=== PATIENT | female | born 1970 | race Caucasian/White ===

== ENCOUNTER 2021-11-01 07:42 | Inpatient (IN) ==
[2021-11-01] MEDS ORDERED: Ondansetron 4 MG/2 ML VIAL IVP ONE (08:19)
[2021-11-01] MEDS ORDERED: *HR* FentaNYL (PF) 100 MCG/2 ML VIAL IVP ONE (08:26)
[2021-11-01 08:39] LABS: Bacteria,Urine Few per hpf (None-Few); Bilirubin,Urine Negative (Negative); Blood,Urine Trace (Negative); Clarity,Urine Turbid (Clear); Color,Urine Yellow (Yellow); Glucose,Urine (UA) Normal (Normal); Hyaline Casts,Urine Few per lpf (None Seen); Ketones,Urine 10 mg/dL (Negative); Leukocyte Esterase,Urine Small (Negative); Mucus,Urine Moderate per lpf (None-Few); Nitrite,Urine Negative (Negative); PH,Urine 5.5 pH Units (5.0-8.0); Protein,Urine 50 mg/dL (Neg-Trace); Specific Gravity,Urine 1.027 (1.010-1.025); Squamous Epithelial Cell,Urine Many per hpf (None-Few); Transitional Epi Cells,Urine Few per hpf (None-Few); Urobilinogen,Urine Normal (Normal); WBC,Urine 15-30 per hpf (0-3)
[2021-11-01 08:41] LABS: Basophils % 0.2 %; Eosinophils # 0.1 K/mcL (0.0-0.6); Eosinophils % 0.4 %; Hemoglobin 15.3 g/dL (11.5-15.4); Immature Granulocytes % 0.4 % (0-4); Lymphocytes # 1.9 K/mcL (0.6-4.6); Lymphocytes % 14.5 %; Mean Corpuscular Hemoglobin 31.7 pg (28.0-33.3); Mean Corpuscular Volume 93.4 fL (83.0-100.0); Mean Platelet Volume 11.7 fL (9.4-12.4); Monocytes % 7.9 %; Neutrophils # 9.9 K/mcL (1.6-8.9); Platelet Count 331 K/mcL (140-400); Red Blood Count 4.82 M/mcL (3.82-4.97); Red Cell Distribution Width 12.2 % (11.5-14.5); Segmented Neutrophils % 76.6 %; White Blood Count 12.9 K/mcL (4.3-11.1)
[2021-11-01] MEDS ORDERED: Isovue-370 500 ML BOTTLE IVP ONE (08:44)
[2021-11-01] MEDS ORDERED: Ringers Solution, Lactated 1,000 ML IVC ONE (08:45)
[2021-11-01 09:07] LABS: Alanine Aminotransferase 12 Units/L (7-52); Albumin 4.8 g/dL (3.5-5.7); Albumin/Globulin Ratio 1.5 (1.1-2.2); Alkaline Phosphatase 98 Units/L (34-104); Aspartate Amino Transferase 14 Units/L (13-39); BUN/Creatinine Ratio 20 (6-26); Bilirubin,Direct 0.2 mg/dL (0.0-0.2); Bilirubin,Indirect 0.6 mg/dL (0.0-1.0); Bilirubin,Total 0.8 mg/dL (0.3-1.0); Blood Urea Nitrogen 14 mg/dL (6-20); Calcium 9.8 mg/dL (8.6-10.3); Carbon Dioxide 22 mEq/L (23-29); Chloride 93 mEq/L (98-107); Globulin 3.1 g/dL (2.4-3.5); Glucose 123 mg/dL (70-105); Lipase > 1800 Units/L (11-82); Osmolality,Calculated 264 (280-300); Potassium 3.8 mEq/L (3.5-5.1); Sodium 126 mEq/L (136-145); Total Protein 7.9 g/dL (6.4-8.9); eGFR For African Americans > 60 (> 60); eGFR For Non-African Americans > 60 (> 60)
[2021-11-01 09:25] LABS: Ethanol < 10 mg/dL (Less than 10)
[2021-11-01] MEDS ORDERED: Morphine Sulfate 2 MG/ML SYRINGE IVP ONE (09:50)
[2021-11-01] MEDS ORDERED: Naloxone 0.4 MG/ML INJ IVP PRN ×2 (11:35)
[2021-11-01] MEDS ORDERED: Ondansetron 4 MG/2 ML VIAL IVP PRN (11:37)
[2021-11-01] MEDS: Morphine Sulfate 2 MG/ML SYRINGE IVP PRN ×3 (13:37→22:04)
[2021-11-01] MEDS: cefTRIAXone 2,000 MG in 0.9 % Sodium Chloride 20 ML IVPB SCH (13:38)
[2021-11-01] MEDS: Pantoprazole 40 MG VIAL IVP SCH ×2 (13:38→18:21)
[2021-11-01] MEDS: Ringers Solution, Lactated 1,000 ML IVC SCH ×2 (13:38→18:22)
[2021-11-01] MEDS ORDERED: *HR* LORazepam 2 MG/ML VIAL IVP ONE (13:39)
[2021-11-01] MEDS: traZODone 50 MG TABLET PO SCH (20:19)
[2021-11-02] MEDS: Ringers Solution, Lactated 1,000 ML IVC SCH ×5 (00:15→19:37)
[2021-11-02] MEDS ORDERED: Ibuprofen 600 MG TABLET PO ONE ×2 (00:55→19:44)
[2021-11-02] MEDS: Morphine Sulfate 2 MG/ML SYRINGE IVP PRN ×6 (01:22→21:38)
[2021-11-02] MEDS: Pantoprazole 40 MG VIAL IVP SCH ×2 (04:16→18:39)
[2021-11-02 06:36] LABS: Basophils % 0.3 %; Eosinophils # 0.1 K/mcL (0.0-0.6); Eosinophils % 1.3 %; Immature Granulocytes % 0.2 % (0-4); Lymphocytes # 1.5 K/mcL (0.6-4.6); Mean Corpuscular HGB Conc 33.3 g/dL (31.6-35.5); Mean Corpuscular Hemoglobin 31.9 pg (28.0-33.3); Mean Corpuscular Volume 95.7 fL (83.0-100.0); Mean Platelet Volume 11.5 fL (9.4-12.4); Monocytes # 0.9 K/mcL (0.0-1.3); Monocytes % 14.1 %; Neutrophils # 3.6 K/mcL (1.6-8.9); Platelet Count 209 K/mcL (140-400); Red Blood Count 3.76 M/mcL (3.82-4.97); Red Cell Distribution Width 12.4 % (11.5-14.5); Segmented Neutrophils % 59.1 %
[2021-11-02 06:37] LABS: White Blood Count 6.1 K/mcL (4.3-11.1)
[2021-11-02 06:56] LABS: Amylase 264 Units/L (29-103); BUN/Creatinine Ratio 16 (6-26); Blood Urea Nitrogen 9 mg/dL (6-20); Calcium 8.2 mg/dL (8.6-10.3); Carbon Dioxide 25 mEq/L (23-29); Chloride 101 mEq/L (98-107); Glucose 88 mg/dL (70-105); Lipase 256 Units/L (11-82); Osmolality,Calculated 272 (280-300); Potassium 3.6 mEq/L (3.5-5.1); Sodium 132 mEq/L (136-145); eGFR For African Americans > 60 (> 60); eGFR For Non-African Americans > 60 (> 60)
[2021-11-02] MEDS: BuPROPion XL (24 HR) 150 MG TABLET PO SCH (08:35)
[2021-11-02] MEDS: FLUoxetine 20 MG CAPSULE PO SCH (08:35)
[2021-11-02] MEDS ORDERED: cefTRIAXone 1,000 MG in 0.9 % Sodium Chloride Mini Bag 100 ML IVPB SCH (09:00)
[2021-11-02] MEDS: cefTRIAXone 2,000 MG in 0.9 % Sodium Chloride 20 ML IVPB SCH (10:59)
[2021-11-02] MEDS: Simethicone 80 MG TAB.CHEW PO PRN (15:29)
[2021-11-02] MEDS: traZODone 50 MG TABLET PO SCH (19:38)
[2021-11-02] MEDS ORDERED: *HR* LORazepam 0.5 MG TABLET PO ONE (19:45)
[2021-11-03] MEDS: Morphine Sulfate 2 MG/ML SYRINGE IVP PRN ×6 (02:39→19:40)
[2021-11-03] MEDS: Pantoprazole 40 MG VIAL IVP SCH ×2 (04:38→16:15)
[2021-11-03] MEDS: Ringers Solution, Lactated 1,000 ML IVC SCH ×3 (04:38→19:51)
[2021-11-03 05:33] LABS: Basophils % 0.3 %; Eosinophils # 0.2 K/mcL (0.0-0.6); Eosinophils % 2.4 %; Hematocrit 34.6 % (35.3-44.9); Hemoglobin 11.9 g/dL (11.5-15.4); Immature Granulocytes % 0.3 % (0-4); Lymphocytes # 1.7 K/mcL (0.6-4.6); Lymphocytes % 25.4 %; Mean Corpuscular HGB Conc 34.4 g/dL (31.6-35.5); Mean Corpuscular Hemoglobin 32.9 pg (28.0-33.3); Mean Corpuscular Volume 95.6 fL (83.0-100.0); Mean Platelet Volume 11.8 fL (9.4-12.4); Monocytes # 0.9 K/mcL (0.0-1.3); Monocytes % 14.2 %; Neutrophils # 3.8 K/mcL (1.6-8.9); Platelet Count 242 K/mcL (140-400); Red Blood Count 3.62 M/mcL (3.82-4.97); Red Cell Distribution Width 12.3 % (11.5-14.5); Segmented Neutrophils % 57.4 %; White Blood Count 6.6 K/mcL (4.3-11.1)
[2021-11-03 05:54] LABS: BUN/Creatinine Ratio 12 (6-26); Blood Urea Nitrogen 6 mg/dL (6-20); Calcium 8.4 mg/dL (8.6-10.3); Carbon Dioxide 23 mEq/L (23-29); Chloride 102 mEq/L (98-107); Glucose 81 mg/dL (70-105); Lipase 97 Units/L (11-82); Osmolality,Calculated 275 (280-300); Potassium 3.4 mEq/L (3.5-5.1); Sodium 134 mEq/L (136-145); eGFR For African Americans > 60 (> 60); eGFR For Non-African Americans > 60 (> 60)
[2021-11-03] MEDS: FLUoxetine 20 MG CAPSULE PO SCH (08:50)
[2021-11-03] MEDS: BuPROPion XL (24 HR) 150 MG TABLET PO SCH (08:50)
[2021-11-03] MEDS: cefTRIAXone 2,000 MG in 0.9 % Sodium Chloride 20 ML IVPB SCH (08:51)
[2021-11-03] MEDS: traZODone 50 MG TABLET PO SCH (19:39)
[2021-11-03] MEDS ORDERED: Ketorolac 30 MG/ML VIAL IVP ONE (21:33)
[2021-11-04] MEDS: Morphine Sulfate 2 MG/ML SYRINGE IVP PRN ×6 (03:15→23:42)
[2021-11-04] MEDS: Pantoprazole 40 MG VIAL IVP SCH ×2 (05:11→16:29)
[2021-11-04 05:47] LABS: Basophils % 0.5 %; Eosinophils # 0.2 K/mcL (0.0-0.6); Eosinophils % 2.6 %; Hematocrit 34.7 % (35.3-44.9); Hemoglobin 11.6 g/dL (11.5-15.4); Immature Granulocytes % 0.5 % (0-4); Lymphocytes # 1.6 K/mcL (0.6-4.6); Lymphocytes % 28.3 %; Mean Corpuscular HGB Conc 33.4 g/dL (31.6-35.5); Mean Corpuscular Hemoglobin 32.4 pg (28.0-33.3); Mean Corpuscular Volume 96.9 fL (83.0-100.0); Mean Platelet Volume 12.3 fL (9.4-12.4); Monocytes # 0.7 K/mcL (0.0-1.3); Monocytes % 12.6 %; Neutrophils # 3.2 K/mcL (1.6-8.9); Platelet Count 233 K/mcL (140-400); Red Blood Count 3.58 M/mcL (3.82-4.97); Red Cell Distribution Width 12.2 % (11.5-14.5); Segmented Neutrophils % 55.5 %; White Blood Count 5.7 K/mcL (4.3-11.1)
[2021-11-04 05:56] LABS: BUN/Creatinine Ratio 12 (6-26); Blood Urea Nitrogen 6 mg/dL (6-20); Calcium 8.2 mg/dL (8.6-10.3); Carbon Dioxide 24 mEq/L (23-29); Chloride 102 mEq/L (98-107); Glucose 84 mg/dL (70-105); Lipase 72 Units/L (11-82); Osmolality,Calculated 277 (280-300); Potassium 3.8 mEq/L (3.5-5.1); Sodium 135 mEq/L (136-145); eGFR For African Americans > 60 (> 60); eGFR For Non-African Americans > 60 (> 60)
[2021-11-04] MEDS: BuPROPion XL (24 HR) 150 MG TABLET PO SCH (07:44)
[2021-11-04] MEDS: FLUoxetine 20 MG CAPSULE PO SCH (07:44)
[2021-11-04] MEDS ORDERED: GADOBUTROL 30 MMOL/30 ML VIAL IVP ONE (10:58)
[2021-11-04] MEDS ORDERED: Acetaminophen 325 MG TABLET PO PRN (13:01)
[2021-11-04] MEDS ORDERED: Ibuprofen 400 MG TABLET PO PRN (13:21)
[2021-11-04] MEDS ORDERED: *HR* Propofol 200 MG/20 ML VIAL IVP ONE ×2 (14:25→15:08)
[2021-11-04] MEDS ORDERED: Lidocaine -MPF 2% 5 ML VIAL ONE (14:26)
[2021-11-04] MEDS: traZODone 50 MG TABLET PO SCH (19:58)
[2021-11-04] MEDS: Ringers Solution, Lactated 1,000 ML IVC SCH (20:01)
[2021-11-04] MEDS ORDERED: Chloraseptic Spray 177 ML BOTTLE MM PRN (20:03)
[2021-11-05] MEDS ORDERED: *HR* Dextrose 50 % in Water (Syg) 50 ML SYRINGE IVP PRN (00:33)
[2021-11-05] MEDS ORDERED: Dextrose 4 GM Chewable Tablets PO PRN ×2 (00:33)
[2021-11-05] MEDS ORDERED: D5% in Water 1,000 ML IVC PRN (00:33)
[2021-11-05] MEDS: Pantoprazole 40 MG VIAL IVP SCH ×2 (04:27→18:14)
[2021-11-05] MEDS: Morphine Sulfate 2 MG/ML SYRINGE IVP PRN ×4 (04:28→22:37)
[2021-11-05 05:07] LABS: Basophils % 0.5 %; Eosinophils # 0.3 K/mcL (0.0-0.6); Eosinophils % 4.3 %; Hematocrit 36.4 % (35.3-44.9); Hemoglobin 12.3 g/dL (11.5-15.4); Immature Granulocytes % 0.3 % (0-4); Lymphocytes # 1.8 K/mcL (0.6-4.6); Lymphocytes % 30.7 %; Mean Corpuscular HGB Conc 33.8 g/dL (31.6-35.5); Mean Corpuscular Hemoglobin 32.2 pg (28.0-33.3); Mean Corpuscular Volume 95.3 fL (83.0-100.0); Monocytes # 0.6 K/mcL (0.0-1.3); Monocytes % 9.9 %; Neutrophils # 3.1 K/mcL (1.6-8.9); Platelet Count 258 K/mcL (140-400); Red Blood Count 3.82 M/mcL (3.82-4.97); Red Cell Distribution Width 12.1 % (11.5-14.5); Segmented Neutrophils % 54.3 %; White Blood Count 5.8 K/mcL (4.3-11.1)
[2021-11-05 05:25] LABS: BUN/Creatinine Ratio 9 (6-26); Blood Urea Nitrogen 5 mg/dL (6-20); Calcium 8.7 mg/dL (8.6-10.3); Carbon Dioxide 25 mEq/L (23-29); Chloride 101 mEq/L (98-107); Glucose 75 mg/dL (70-105); Osmolality,Calculated 276 (280-300); Potassium 3.7 mEq/L (3.5-5.1); Sodium 135 mEq/L (136-145); eGFR For African Americans > 60 (> 60); eGFR For Non-African Americans > 60 (> 60)
[2021-11-05 05:26] LABS: Magnesium 1.5 mg/dL (1.6-2.6); Phosphorous 3.7 mg/dL (2.7-4.5)
[2021-11-05] MEDS ORDERED: *HR* Dextrose 50 % in Water (Syg) 50 ML SYRINGE IVP ONE (05:57)
[2021-11-05] MEDS: BuPROPion XL (24 HR) 150 MG TABLET PO SCH (08:39)
[2021-11-05] MEDS: FLUoxetine 20 MG CAPSULE PO SCH (08:39)
[2021-11-05] MEDS: Ringers Solution, Lactated 1,000 ML IVC SCH (16:23)
[2021-11-05] MEDS: traZODone 50 MG TABLET PO SCH (22:36)
[2021-11-06 02:50] LABS: Basophils % 0.7 %; Eosinophils # 0.3 K/mcL (0.0-0.6); Eosinophils % 4.7 %; Hematocrit 39.3 % (35.3-44.9); Hemoglobin 13.3 g/dL (11.5-15.4); Immature Granulocytes % 0.3 % (0-4); Lymphocytes # 2.1 K/mcL (0.6-4.6); Lymphocytes % 36.1 %; Mean Corpuscular HGB Conc 33.8 g/dL (31.6-35.5); Mean Corpuscular Hemoglobin 32.1 pg (28.0-33.3); Mean Corpuscular Volume 94.9 fL (83.0-100.0); Mean Platelet Volume 11.8 fL (9.4-12.4); Monocytes # 0.5 K/mcL (0.0-1.3); Monocytes % 8.6 %; Neutrophils # 2.9 K/mcL (1.6-8.9); Platelet Count 313 K/mcL (140-400); Red Blood Count 4.14 M/mcL (3.82-4.97); Red Cell Distribution Width 12.2 % (11.5-14.5); Segmented Neutrophils % 49.6 %; White Blood Count 5.9 K/mcL (4.3-11.1)
[2021-11-06 03:01] LABS: BUN/Creatinine Ratio 8 (6-26); Blood Urea Nitrogen 5 mg/dL (6-20); Calcium 8.8 mg/dL (8.6-10.3); Carbon Dioxide 27 mEq/L (23-29); Chloride 101 mEq/L (98-107); Glucose 121 mg/dL (70-105); Osmolality,Calculated 283 (280-300); Potassium 3.2 mEq/L (3.5-5.1); Sodium 137 mEq/L (136-145); eGFR For African Americans > 60 (> 60); eGFR For Non-African Americans > 60 (> 60)
[2021-11-06 03:04] LABS: Magnesium 1.8 mg/dL (1.6-2.6)
[2021-11-06 03:47] LABS: Platelet Estimate Normal (Normal); Reactive Lymphocytes Present (Not Present)
[2021-11-06] MEDS: Pantoprazole 40 MG VIAL IVP SCH (05:50)
[2021-11-06] MEDS: BuPROPion XL (24 HR) 150 MG TABLET PO SCH (08:09)
[2021-11-06] MEDS: FLUoxetine 20 MG CAPSULE PO SCH (08:10)
[2021-11-06] MEDS ORDERED: Potassium Chloride Elixir 20 MEQ/15 ML UDC GTUBE ONE (08:25)
[2021-11-06] MEDS ORDERED: Morphine Sulfate 2 MG/ML SYRINGE IVP PRN ×2 (11:13→13:09)
[2021-11-06] MEDS: Insulin LISPRO 300 UNITS/3 ML VIAL SUBQ SCH ×3 (12:23→21:08)
[2021-11-06] MEDS: traZODone 50 MG TABLET PO SCH (21:07)
[2021-11-06] MEDS: Simethicone 80 MG TAB.CHEW PO PRN (23:01)
[2021-11-07] MEDS: Insulin LISPRO 300 UNITS/3 ML VIAL SUBQ SCH ×4 (01:39→15:03)
[2021-11-07 02:43] LABS: Basophils % 0.4 %; Eosinophils # 0.3 K/mcL (0.0-0.6); Eosinophils % 3.2 %; Hematocrit 37.2 % (35.3-44.9); Hemoglobin 12.6 g/dL (11.5-15.4); Immature Granulocytes % 0.3 % (0-4); Lymphocytes # 1.6 K/mcL (0.6-4.6); Lymphocytes % 17.2 %; Mean Corpuscular HGB Conc 33.9 g/dL (31.6-35.5); Mean Corpuscular Hemoglobin 32.8 pg (28.0-33.3); Mean Corpuscular Volume 96.9 fL (83.0-100.0); Monocytes # 0.6 K/mcL (0.0-1.3); Monocytes % 6.7 %; Platelet Count 293 K/mcL (140-400); Red Blood Count 3.84 M/mcL (3.82-4.97); Red Cell Distribution Width 12.3 % (11.5-14.5); Segmented Neutrophils % 72.2 %
[2021-11-07 02:52] LABS: Neutrophils # 6.8 K/mcL (1.6-8.9); White Blood Count 9.4 K/mcL (4.3-11.1)
[2021-11-07 03:06] LABS: BUN/Creatinine Ratio 12 (6-26); Blood Urea Nitrogen 8 mg/dL (6-20); Carbon Dioxide 27 mEq/L (23-29); Chloride 104 mEq/L (98-107); Glucose 101 mg/dL (70-105); Magnesium 1.8 mg/dL (1.6-2.6); Osmolality,Calculated 288 (280-300); Phosphorous 3.9 mg/dL (2.7-4.5); Potassium 4.1 mEq/L (3.5-5.1); Sodium 140 mEq/L (136-145); eGFR For African Americans > 60 (> 60); eGFR For Non-African Americans > 60 (> 60)
[2021-11-07] MEDS: BuPROPion XL (24 HR) 150 MG TABLET PO SCH (07:51)
[2021-11-07] MEDS: FLUoxetine 20 MG CAPSULE PO SCH (07:51)
[2021-11-07 11:42] VITALS: BP 129/76; PULSE 51; TEMP 97.9; O2SAT 99
== END 2021-11-07 16:54 | disposition home health service (06) | DRG 439 ==
LOC: EMEROOARM 07:42 → 3ANU 07:42 → SUATTDRO 12:33 → 3ANU 13:26
PROVIDERS: ADMIT Hospitalist; ATTEND Family Medicine

== ENCOUNTER 2021-12-07 05:25 | Observation (INO) ==
[2021-12-07] MEDS ORDERED: Ondansetron 4 MG/2 ML VIAL IVP ONE (05:53)
[2021-12-07] MEDS ORDERED: Morphine Sulfate 2 MG/ML SYRINGE IVP STA (05:53)
[2021-12-07] MEDS ORDERED: 0.9 % Sodium Chloride 1,000 ML IVC ONE (05:53)
[2021-12-07] MEDS ORDERED: Isovue-370 500 ML BOTTLE IVP ONE (05:54)
[2021-12-07 06:54] LABS: Basophils # 0.1 K/mcL (0.0-0.2); Basophils % 0.5 %; Eosinophils # 0.1 K/mcL (0.0-0.6); Eosinophils % 0.9 %; Hematocrit 44.1 % (35.3-44.9); Hemoglobin 14.8 g/dL (11.5-15.4); Immature Granulocytes % 0.4 % (0-4); Lymphocytes # 2.1 K/mcL (0.6-4.6); Lymphocytes % 15.2 %; Mean Corpuscular HGB Conc 33.6 g/dL (31.6-35.5); Mean Corpuscular Hemoglobin 30.6 pg (28.0-33.3); Mean Corpuscular Volume 91.1 fL (83.0-100.0); Mean Platelet Volume 11.3 fL (9.4-12.4); Monocytes # 0.7 K/mcL (0.0-1.3); Monocytes % 4.9 %; Neutrophils # 10.7 K/mcL (1.6-8.9); Platelet Count 413 K/mcL (140-400); Red Blood Count 4.84 M/mcL (3.82-4.97); Red Cell Distribution Width 12.4 % (11.5-14.5); Segmented Neutrophils % 78.1 %; White Blood Count 13.7 K/mcL (4.3-11.1)
[2021-12-07 07:17] LABS: Alanine Aminotransferase 12 Units/L (7-52); Albumin 4.6 g/dL (3.5-5.7); Albumin/Globulin Ratio 1.5 (1.1-2.2); Alkaline Phosphatase 89 Units/L (34-104); Amylase 143 Units/L (29-103); Aspartate Amino Transferase 12 Units/L (13-39); BUN/Creatinine Ratio 11 (6-26); Bilirubin,Indirect 0.5 mg/dL (0.0-1.0); Bilirubin,Total 0.5 mg/dL (0.3-1.0); Blood Urea Nitrogen 8 mg/dL (6-20); Carbon Dioxide 24 mEq/L (23-29); Chloride 100 mEq/L (98-107); Globulin 3.1 g/dL (2.4-3.5); Glucose 135 mg/dL (70-105); Lipase 120 Units/L (11-82); Osmolality,Calculated 280 (280-300); Potassium 3.9 mEq/L (3.5-5.1); Sodium 135 mEq/L (136-145); Total Protein 7.7 g/dL (6.4-8.9); Troponin I < 0.03 ng/mL (< 0.04); eGFR For African Americans > 60 (> 60); eGFR For Non-African Americans > 60 (> 60)
[2021-12-07 07:29] LABS: Bilirubin,Urine Negative (Negative); Blood,Urine Negative (Negative); Clarity,Urine Clear (Clear); Color,Urine Light-Yellow (Yellow); Glucose,Urine (UA) Normal (Normal); Ketones,Urine Negative (Negative); Leukocyte Esterase,Urine Negative (Negative); Nitrite,Urine Negative (Negative); PH,Urine 7.5 pH Units (5.0-8.0); Protein,Urine Trace mg/dL (Neg-Trace); Urobilinogen,Urine Normal (Normal)
[2021-12-07] MEDS ORDERED: Morphine Sulfate 2 MG/ML SYRINGE IVP ONE (09:24)
[2021-12-07] MEDS ORDERED: *HR* OxyCODONE Oral Soln 5 MG/5 ML UD.LIQ GTUBE ONE (09:30)
[2021-12-07] MEDS ORDERED: Ondansetron 4 MG/2 ML VIAL IVP PRN (10:00)
[2021-12-07] MEDS ORDERED: Naloxone 0.4 MG/ML INJ IVP PRN (10:00)
[2021-12-07] MEDS ORDERED: Ondansetron ODT 4 MG TAB.RAPDIS SL PRN (11:09)
[2021-12-07] MEDS ORDERED: NON-FORMULARY MEDICATION 1 EACH EACH (Fluoxetine Hcl [Fluoxetine Hcl] 40 MG Capsule) PO SCH (11:15)
[2021-12-07] MEDS: FLUoxetine 20 MG CAPSULE PO SCH (12:10)
[2021-12-07] MEDS: BuPROPion XL (24 HR) 150 MG TABLET PO SCH (12:10)
[2021-12-07] MEDS: Amoxicillin 500 MG CAPSULE PO SCH ×3 (12:11→23:45)
[2021-12-07] MEDS: Pantoprazole 40 MG VIAL IVP SCH (12:11)
[2021-12-07] MEDS ORDERED: Metoclopramide 10 MG/2 ML VIAL IVP PRN (14:08)
[2021-12-07] MEDS: Morphine Sulfate 2 MG/ML SYRINGE IVP PRN ×2 (17:28→23:44)
[2021-12-07] MEDS: traZODone 50 MG TABLET PO SCH (20:30)
[2021-12-08 01:37] LABS: Basophils % 0.4 %; Eosinophils # 0.2 K/mcL (0.0-0.6); Eosinophils % 1.8 %; Hematocrit 38.7 % (35.3-44.9); Immature Granulocytes % 0.3 % (0-4); Lymphocytes # 2.1 K/mcL (0.6-4.6); Lymphocytes % 22.7 %; Mean Corpuscular HGB Conc 33.6 g/dL (31.6-35.5); Mean Corpuscular Hemoglobin 31.5 pg (28.0-33.3); Mean Corpuscular Volume 93.7 fL (83.0-100.0); Mean Platelet Volume 11.3 fL (9.4-12.4); Monocytes # 0.7 K/mcL (0.0-1.3); Monocytes % 8.2 %; Platelet Count 269 K/mcL (140-400); Red Blood Count 4.13 M/mcL (3.82-4.97); Red Cell Distribution Width 12.5 % (11.5-14.5); Segmented Neutrophils % 66.6 %; White Blood Count 9.1 K/mcL (4.3-11.1)
[2021-12-08 02:24] LABS: Alanine Aminotransferase 9 Units/L (7-52); Albumin 3.6 g/dL (3.5-5.7); Albumin/Globulin Ratio 1.3 (1.1-2.2); Alkaline Phosphatase 65 Units/L (34-104); Aspartate Amino Transferase 10 Units/L (13-39); BUN/Creatinine Ratio 19 (6-26); Bilirubin,Total 0.4 mg/dL (0.3-1.0); Blood Urea Nitrogen 11 mg/dL (6-20); Carbon Dioxide 24 mEq/L (23-29); Chloride 104 mEq/L (98-107); Globulin 2.8 g/dL (2.4-3.5); Glucose 112 mg/dL (70-105); Lipase 1199 Units/L (11-82); Osmolality,Calculated 282 (280-300); Potassium 3.2 mEq/L (3.5-5.1); Sodium 136 mEq/L (136-145); Total Protein 6.4 g/dL (6.4-8.9); eGFR For African Americans > 60 (> 60); eGFR For Non-African Americans > 60 (> 60)
[2021-12-08] MEDS: *HR* Enoxaparin 30 MG/0.3 ML SYRINGE SQ SCH (05:29)
[2021-12-08] MEDS: Amoxicillin 500 MG CAPSULE PO SCH ×3 (05:29→17:49)
[2021-12-08] MEDS: Morphine Sulfate 2 MG/ML SYRINGE IVP PRN ×2 (06:05→12:28)
[2021-12-08] MEDS ORDERED: Morphine Sulfate 2 MG/ML SYRINGE IVP ONE (08:52)
[2021-12-08] MEDS: BuPROPion XL (24 HR) 150 MG TABLET PO SCH (09:07)
[2021-12-08] MEDS: FLUoxetine 20 MG CAPSULE PO SCH (09:08)
[2021-12-08] MEDS: Loratadine 10 MG TABLET PO SCH (09:08)
[2021-12-08] MEDS: Pantoprazole 40 MG VIAL IVP SCH (09:08)
[2021-12-08] MEDS: Ringers Solution, Lactated 1,000 ML IVC SCH (14:33)
[2021-12-08] MEDS: traZODone 50 MG TABLET PO SCH (20:07)
[2021-12-08] MEDS ORDERED: *HR* HYDROmorphone (PF) 1 MG/ML SYRINGE IVP ONE (20:27)
[2021-12-09] MEDS: Ringers Solution, Lactated 1,000 ML IVC SCH (02:18)
[2021-12-09 03:08] LABS: Basophils % 0.5 %; Eosinophils # 0.2 K/mcL (0.0-0.6); Eosinophils % 2.2 %; Hematocrit 39.4 % (35.3-44.9); Immature Granulocytes % 0.1 % (0-4); Lymphocytes # 3.1 K/mcL (0.6-4.6); Lymphocytes % 35.1 %; Mean Corpuscular Volume 93.8 fL (83.0-100.0); Mean Platelet Volume 11.3 fL (9.4-12.4); Monocytes # 0.7 K/mcL (0.0-1.3); Neutrophils # 4.8 K/mcL (1.6-8.9); Platelet Count 254 K/mcL (140-400); Red Cell Distribution Width 12.2 % (11.5-14.5); Segmented Neutrophils % 54.1 %; White Blood Count 8.8 K/mcL (4.3-11.1)
[2021-12-09 03:31] LABS: Alanine Aminotransferase 9 Units/L (7-52); Albumin 3.8 g/dL (3.5-5.7); Albumin/Globulin Ratio 1.5 (1.1-2.2); Alkaline Phosphatase 70 Units/L (34-104); Aspartate Amino Transferase 12 Units/L (13-39); BUN/Creatinine Ratio 19 (6-26); Bilirubin,Total 0.4 mg/dL (0.3-1.0); Blood Urea Nitrogen 11 mg/dL (6-20); Calcium 9.3 mg/dL (8.6-10.3); Carbon Dioxide 28 mEq/L (23-29); Chloride 104 mEq/L (98-107); Globulin 2.6 g/dL (2.4-3.5); Glucose 92 mg/dL (70-105); Lipase 116 Units/L (11-82); Osmolality,Calculated 289 (280-300); Potassium 3.6 mEq/L (3.5-5.1); Sodium 140 mEq/L (136-145); Total Protein 6.4 g/dL (6.4-8.9); eGFR For African Americans > 60 (> 60); eGFR For Non-African Americans > 60 (> 60)
[2021-12-09] MEDS: *HR* Enoxaparin 30 MG/0.3 ML SYRINGE SQ SCH (06:08)
[2021-12-09] MEDS: FLUoxetine 20 MG CAPSULE PO SCH (09:21)
[2021-12-09] MEDS: BuPROPion XL (24 HR) 150 MG TABLET PO SCH (09:22)
[2021-12-09] MEDS: Pantoprazole 40 MG VIAL IVP SCH (09:22)
[2021-12-09] MEDS: Loratadine 10 MG TABLET PO SCH (09:22)
[2021-12-09 10:52] VITALS: TEMP 98.3
[2021-12-09 15:24] VITALS: BP 170/100; PULSE 56; O2SAT 96
== END 2021-12-09 17:52 | disposition home health service (06) ==
LOC: EMEROOARM 05:25 → 3ANU 05:25
PROVIDERS: ADMIT Internal Medicine; ATTEND Internal Medicine

== ENCOUNTER 2022-01-30 13:18 | Inpatient (IN) ==
[2022-01-30 15:29] LABS: Bilirubin,Urine Negative (Negative); Blood,Urine Negative (Negative); Clarity,Urine Turbid (Clear); Color,Urine Yellow (Yellow); Glucose,Urine (UA) Normal (Normal); Hyaline Casts,Urine Few per lpf (None Seen); Ketones,Urine 20 mg/dL (Negative); Leukocyte Esterase,Urine Negative (Negative); Mucus,Urine Moderate per lpf (None-Few); Nitrite,Urine Negative (Negative); PH,Urine 8.5 pH Units (5.0-8.0); Protein,Urine 100 mg/dL (Neg-Trace); Specific Gravity,Urine 1.025 (1.010-1.025); Squamous Epithelial Cell,Urine Moderate per hpf (None-Few); Urobilinogen,Urine Normal (Normal)
[2022-01-30] MEDS ORDERED: Ketamine *HR* 14 MG in 0.9 % Sodium Chloride 100 ML IVC ONE (15:30)
[2022-01-30] MEDS ORDERED: Isovue-370 500 ML BOTTLE IVP ONE (15:38)
[2022-01-30 15:40] LABS: Basophils % 0.2 %; Eosinophils % 0.1 %; Hematocrit 36.4 % (35.3-44.9); Hemoglobin 12.3 g/dL (11.5-15.4); Immature Granulocytes % 0.5 % (0-4); Lymphocytes # 1.6 K/mcL (0.6-4.6); Lymphocytes % 9.6 %; Mean Corpuscular HGB Conc 33.8 g/dL (31.6-35.5); Mean Corpuscular Hemoglobin 30.9 pg (28.0-33.3); Mean Corpuscular Volume 91.5 fL (83.0-100.0); Mean Platelet Volume 11.3 fL (9.4-12.4); Monocytes % 6.1 %; Neutrophils # 13.6 K/mcL (1.6-8.9); Platelet Count 347 K/mcL (140-400); Red Blood Count 3.98 M/mcL (3.82-4.97); Red Cell Distribution Width 12.9 % (11.5-14.5); Segmented Neutrophils % 83.5 %; White Blood Count 16.3 K/mcL (4.3-11.1)
[2022-01-30] MEDS ORDERED: 0.9 % Sodium Chloride 1,000 ML IVC ONE (15:40)
[2022-01-30 16:01] LABS: Alanine Aminotransferase 71 Units/L (7-52); Albumin 4.4 g/dL (3.5-5.7); Albumin/Globulin Ratio 1.4 (1.1-2.2); Alkaline Phosphatase 140 Units/L (34-104); Aspartate Amino Transferase 51 Units/L (13-39); BUN/Creatinine Ratio 17 (6-26); Bilirubin,Direct 0.1 mg/dL (0.0-0.2); Bilirubin,Indirect 0.8 mg/dL (0.0-1.0); Bilirubin,Total 0.9 mg/dL (0.3-1.0); Blood Urea Nitrogen 12 mg/dL (6-20); Calcium 9.9 mg/dL (8.6-10.3); Carbon Dioxide 24 mEq/L (23-29); Chloride 99 mEq/L (98-107); Globulin 3.2 g/dL (2.4-3.5); Glucose 130 mg/dL (70-105); Lipase 142 Units/L (11-82); Osmolality,Calculated 278 (280-300); Sodium 133 mEq/L (136-145); Total Protein 7.6 g/dL (6.4-8.9); eGFR For African Americans > 60 (> 60); eGFR For Non-African Americans > 60 (> 60)
[2022-01-30 16:08] LABS: Troponin I < 0.03 ng/mL (< 0.04)
[2022-01-30] MEDS ORDERED: *HR* HYDROmorphone (PF) 1 MG/ML SYRINGE IVP ONE ×2 (17:20→20:03)
[2022-01-30 17:38] LABS: Magnesium 1.6 mg/dL (1.6-2.6)
[2022-01-30] MEDS ORDERED: Melatonin 3 MG TABLET PO PRN (20:32)
[2022-01-30] MEDS ORDERED: Naloxone 0.4 MG/ML INJ IVP PRN (20:32)
[2022-01-30] MEDS: Ringers Solution, Lactated 1,000 ML IVC SCH (23:48)
[2022-01-31] MEDS: *HR* HYDROmorphone (PF) 1 MG/ML SYRINGE IVP PRN ×3 (04:37→19:35)
[2022-01-31 05:57] LABS: Mean Corpuscular HGB Conc 33.1 g/dL (31.6-35.5); Mean Corpuscular Hemoglobin 30.3 pg (28.0-33.3); Mean Corpuscular Volume 91.4 fL (83.0-100.0); Mean Platelet Volume 11.3 fL (9.4-12.4); Platelet Count 243 K/mcL (140-400); White Blood Count 11.6 K/mcL (4.3-11.1)
[2022-01-31 05:59] LABS: Hemoglobin 10.6 g/dL (11.5-15.4)
[2022-01-31 06:14] LABS: BUN/Creatinine Ratio 17 (6-26); Blood Urea Nitrogen 8 mg/dL (6-20); Calcium 8.9 mg/dL (8.6-10.3); Carbon Dioxide 24 mEq/L (23-29); Chloride 99 mEq/L (98-107); Glucose 125 mg/dL (70-105); Osmolality,Calculated 270 (280-300); Potassium 3.7 mEq/L (3.5-5.1); Sodium 130 mEq/L (136-145); eGFR For African Americans > 60 (> 60); eGFR For Non-African Americans > 60 (> 60)
[2022-01-31] MEDS: Ringers Solution, Lactated 1,000 ML IVC SCH (06:34)
[2022-01-31] MEDS: FLUoxetine 20 MG CAPSULE PO SCH ×2 (08:40→19:35)
[2022-01-31] MEDS: BuPROPion XL (24 HR) 150 MG TABLET PO SCH (08:40)
[2022-01-31] MEDS: amLODIPine 5 MG TABLET PO SCH (11:53)
[2022-01-31] MEDS: 0.9 % Sodium Chloride 1,000 ML IVC SCH ×3 (11:54→22:15)
[2022-01-31] MEDS ORDERED: *HR* HYDROmorphone (PF) 1 MG/ML SYRINGE IVP ONE (14:54)
[2022-01-31] MEDS: *HR* Heparin 5,000 UNIT/ML VIAL SQ SCH (18:18)
[2022-01-31] MEDS: traZODone 50 MG TABLET PO SCH (19:35)
[2022-02-01] MEDS: *HR* HYDROmorphone (PF) 1 MG/ML SYRINGE IVP PRN ×2 (02:24→11:04)
[2022-02-01] MEDS: 0.9 % Sodium Chloride 1,000 ML IVC SCH ×4 (03:30→21:30)
[2022-02-01] MEDS: *HR* Heparin 5,000 UNIT/ML VIAL SQ SCH ×2 (05:35→18:19)
[2022-02-01 05:53] LABS: Basophils % 0.2 %; Eosinophils % 0.1 %; Hematocrit 32.1 % (35.3-44.9); Hemoglobin 10.8 g/dL (11.5-15.4); Immature Granulocytes % 0.6 % (0-4); Lymphocytes # 1.2 K/mcL (0.6-4.6); Mean Corpuscular HGB Conc 33.6 g/dL (31.6-35.5); Mean Corpuscular Hemoglobin 30.4 pg (28.0-33.3); Mean Corpuscular Volume 90.4 fL (83.0-100.0); Mean Platelet Volume 11.3 fL (9.4-12.4); Monocytes # 1.4 K/mcL (0.0-1.3); Monocytes % 10.6 %; Neutrophils # 10.6 K/mcL (1.6-8.9); Platelet Count 270 K/mcL (140-400); Red Blood Count 3.55 M/mcL (3.82-4.97); Red Cell Distribution Width 12.5 % (11.5-14.5); Segmented Neutrophils % 79.5 %; White Blood Count 13.3 K/mcL (4.3-11.1)
[2022-02-01 06:00] LABS: Alanine Aminotransferase 24 Units/L (7-52); Albumin 3.5 g/dL (3.5-5.7); Albumin/Globulin Ratio 1.3 (1.1-2.2); Alkaline Phosphatase 93 Units/L (34-104); Aspartate Amino Transferase 10 Units/L (13-39); BUN/Creatinine Ratio 12 (6-26); Bilirubin,Total 0.6 mg/dL (0.3-1.0); Blood Urea Nitrogen 5 mg/dL (6-20); Calcium 8.5 mg/dL (8.6-10.3); Carbon Dioxide 22 mEq/L (23-29); Chloride 95 mEq/L (98-107); Globulin 2.8 g/dL (2.4-3.5); Glucose 112 mg/dL (70-105); Magnesium 1.2 mg/dL (1.6-2.6); Osmolality,Calculated 264 (280-300); Phosphorous 4.2 mg/dL (2.7-4.5); Potassium 3.2 mEq/L (3.5-5.1); Sodium 128 mEq/L (136-145); Total Protein 6.3 g/dL (6.4-8.9); eGFR For African Americans > 60 (> 60); eGFR For Non-African Americans > 60 (> 60)
[2022-02-01 08:17] LABS: Lipase 24 Units/L (11-82)
[2022-02-01] MEDS: BuPROPion XL (24 HR) 150 MG TABLET PO SCH (08:44)
[2022-02-01] MEDS: FLUoxetine 20 MG CAPSULE PO SCH ×2 (08:44→21:30)
[2022-02-01] MEDS: amLODIPine 5 MG TABLET PO SCH (08:45)
[2022-02-01] MEDS: traZODone 50 MG TABLET PO SCH (21:31)
[2022-02-02 02:11] LABS: Basophils % 0.1 %; Eosinophils % 0.1 %; Hematocrit 30.9 % (35.3-44.9); Hemoglobin 10.3 g/dL (11.5-15.4); Immature Granulocytes % 0.6 % (0-4); Lymphocytes # 1.2 K/mcL (0.6-4.6); Lymphocytes % 9.5 %; Mean Corpuscular HGB Conc 33.3 g/dL (31.6-35.5); Mean Corpuscular Hemoglobin 29.9 pg (28.0-33.3); Mean Corpuscular Volume 89.6 fL (83.0-100.0); Mean Platelet Volume 10.9 fL (9.4-12.4); Monocytes # 1.3 K/mcL (0.0-1.3); Monocytes % 9.9 %; Neutrophils # 10.2 K/mcL (1.6-8.9); Platelet Count 293 K/mcL (140-400); Red Blood Count 3.45 M/mcL (3.82-4.97); Red Cell Distribution Width 12.6 % (11.5-14.5); Segmented Neutrophils % 79.8 %; White Blood Count 12.8 K/mcL (4.3-11.1)
[2022-02-02 02:31] LABS: Alanine Aminotransferase 16 Units/L (7-52); Albumin 3.2 g/dL (3.5-5.7); Alkaline Phosphatase 86 Units/L (34-104); Aspartate Amino Transferase 7 Units/L (13-39); BUN/Creatinine Ratio 13 (6-26); Bilirubin,Total 0.6 mg/dL (0.3-1.0); Blood Urea Nitrogen 5 mg/dL (6-20); Calcium 8.4 mg/dL (8.6-10.3); Carbon Dioxide 19 mEq/L (23-29); Chloride 97 mEq/L (98-107); Globulin 3.1 g/dL (2.4-3.5); Glucose 110 mg/dL (70-105); Osmolality,Calculated 266 (280-300); Potassium 3.3 mEq/L (3.5-5.1); Sodium 129 mEq/L (136-145); Total Protein 6.3 g/dL (6.4-8.9); eGFR For African Americans > 60 (> 60); eGFR For Non-African Americans > 60 (> 60)
[2022-02-02] MEDS: Ondansetron 4 MG/2 ML VIAL IVP PRN ×2 (04:16→22:33)
[2022-02-02] MEDS: *HR* HYDROmorphone (PF) 1 MG/ML SYRINGE IVP PRN ×2 (04:17→11:17)
[2022-02-02] MEDS: *HR* Heparin 5,000 UNIT/ML VIAL SQ SCH ×2 (06:26→18:08)
[2022-02-02] MEDS ORDERED: 0.9 % Sodium Chloride 500 ML ONE (09:23)
[2022-02-02] MEDS: FLUoxetine 20 MG CAPSULE PO SCH ×2 (09:24→19:33)
[2022-02-02] MEDS: BuPROPion XL (24 HR) 150 MG TABLET PO SCH (09:24)
[2022-02-02] MEDS: amLODIPine 5 MG TABLET PO SCH (09:24)
[2022-02-02] MEDS ORDERED: *HR* HYDROmorphone (PF) 1 MG/ML SYRINGE IVP PRN (15:28)
[2022-02-02] MEDS: 0.9 % Sodium Chloride 1,000 ML IVC SCH (18:08)
[2022-02-02] MEDS: traZODone 50 MG TABLET PO SCH (19:32)
[2022-02-03] MEDS: *HR* HYDROmorphone (PF) 1 MG/ML SYRINGE IVP PRN ×3 (01:05→17:54)
[2022-02-03 05:09] LABS: Basophils % 0.2 %; Eosinophils % 0.3 %; Hematocrit 31.5 % (35.3-44.9); Hemoglobin 10.6 g/dL (11.5-15.4); Immature Granulocytes % 0.5 % (0-4); Lymphocytes # 1.6 K/mcL (0.6-4.6); Lymphocytes % 14.3 %; Mean Corpuscular HGB Conc 33.7 g/dL (31.6-35.5); Mean Corpuscular Hemoglobin 30.4 pg (28.0-33.3); Mean Corpuscular Volume 90.3 fL (83.0-100.0); Mean Platelet Volume 10.5 fL (9.4-12.4); Monocytes # 1.4 K/mcL (0.0-1.3); Monocytes % 12.4 %; Neutrophils # 8.2 K/mcL (1.6-8.9); Platelet Count 338 K/mcL (140-400); Red Blood Count 3.49 M/mcL (3.82-4.97); Red Cell Distribution Width 12.8 % (11.5-14.5); Segmented Neutrophils % 72.3 %; White Blood Count 11.4 K/mcL (4.3-11.1)
[2022-02-03 05:35] LABS: Alanine Aminotransferase 12 Units/L (7-52); Albumin 3.3 g/dL (3.5-5.7); Albumin/Globulin Ratio 1.1 (1.1-2.2); Alkaline Phosphatase 81 Units/L (34-104); Aspartate Amino Transferase 6 Units/L (13-39); BUN/Creatinine Ratio 15 (6-26); Bilirubin,Total 0.6 mg/dL (0.3-1.0); Blood Urea Nitrogen 6 mg/dL (6-20); Calcium 8.8 mg/dL (8.6-10.3); Carbon Dioxide 20 mEq/L (23-29); Chloride 98 mEq/L (98-107); Globulin 2.9 g/dL (2.4-3.5); Glucose 100 mg/dL (70-105); Magnesium 1.5 mg/dL (1.6-2.6); Osmolality,Calculated 268 (280-300); Potassium 3.3 mEq/L (3.5-5.1); Sodium 130 mEq/L (136-145); Total Protein 6.2 g/dL (6.4-8.9); eGFR For African Americans > 60 (> 60); eGFR For Non-African Americans > 60 (> 60)
[2022-02-03] MEDS: 0.9 % Sodium Chloride 1,000 ML IVC SCH ×2 (06:01→14:21)
[2022-02-03] MEDS: *HR* Heparin 5,000 UNIT/ML VIAL SQ SCH ×2 (06:02→17:19)
[2022-02-03 07:44] LABS: Lipase 21 Units/L (11-82)
[2022-02-03] MEDS: Ondansetron 4 MG/2 ML VIAL IVP PRN (08:54)
[2022-02-03] MEDS ORDERED: Potassium Chloride Elixir 20 MEQ/15 ML UDC GTUBE ONE (09:28)
[2022-02-03] MEDS: FLUoxetine 20 MG CAPSULE PO SCH (10:30)
[2022-02-03] MEDS: BuPROPion XL (24 HR) 150 MG TABLET PO SCH (10:30)
[2022-02-03] MEDS: amLODIPine 5 MG TABLET PO SCH (10:30)
[2022-02-03 11:08] VITALS: O2SAT 98
[2022-02-03 15:34] VITALS: BP 144/84; PULSE 62; TEMP 97.9
== END 2022-02-03 19:17 | disposition home or self-care (01) | DRG 439 ==
LOC: 3BNU 13:18 → EMEROOARM 13:18 → SUATTDRO 20:26 → 3BNU 21:54 → SUATTDRO 02-02 17:48
PROVIDERS: ADMIT Internal Medicine; ATTEND Nurse Practitioner